=== PATIENT | female | born 1935 | race Caucasian/White ===

== ENCOUNTER 2018-06-02 16:10 | Inpatient (IN) ==
[2018-06-02 17:00] LABS: Hematocrit 36.6 VOL% (35.7-47.0); Hemoglobin 12.2 GM/DL (12.0-16.0); Mean Corpuscular HGB Conc 33.3 GM/DL (32-36); Mean Corpuscular Hemoglobin 30 PG (27-34); Mean Corpuscular Volume 90.8 FL (87-102); Platelet Count 217 T/CUMM (130-400); Red Blood Count 4.03 MC/CUMM (3.8-5.5); Red Cell Distribution Width 15.5 % (9.3-17.3); White Blood Count 6.7 T/CUMM (4-12)
[2018-06-02 17:01] LABS: Basophils # 0.1 10*3/uL (0.0-0.2); Eosinophils # 0.1 10*3/uL (0.0-0.87); Eosinophils % 0.9 % (0.00-10.9); Immature Granulocytes % 0.3 %; Immature Granulocytes Absolute 0.02 #; Lymphocytes # 1.8 10*3/uL (1.4-4.0); Mean Platelet Volume 12.3 FL (9.6-12.0); Monocytes # 0.6 10*3/uL (0.11-0.8); Monocytes % 8.5 % (1.7-12.7); Neutrophils # 4.3 10*3/uL (1.4-7.4); Neutrophils % 63.3 % (38.7-73.9)
[2018-06-02 17:09] LABS: INR 1.4; PT Patient Result 14.6 SECS; Partial Thromboplastin Time 29.7 SECS (0-40)
[2018-06-02 17:12] LABS: Apearance,Urine Slightly Hazy (Clear); Bacteria,Urine Many /HPF (Few); Blood, Urine Negative (Negative); Glucose,Urine (UA) Negative (Negative); Ketones,Urine 5 mg/dL (Negative); Mucus,Urine Few /LPF (Occasional); Nitrite,Urine Positive (Negative); Protein,Urine 30 MG/DL; Squamous Epithelial Cell,Urine Occasional /HPF (0-10); Urine Color Amber (Yellow); Urine Specific Gravity 1.014 (1.001-1.035); WBC,Urine 2 /HPF (0-6)
[2018-06-02 17:13] LABS: Bilirubin,Urine Small mg/dL (Negative)
[2018-06-02 17:25] LABS: Albumin 3.3 G/DL (3.4-5.0); Bilirubin,Total 6.3 MG/DL (0.2-1.0); Calcium 8.7 MG/DL (8.5-10.1); Osmolality,Calculated 285.3 MOS/KG (273-304); Potassium 3.7 MMOL/L (3.5-5.1); Total Protein 7.6 G/DL (6.4-8.3)
[2018-06-02] MEDS: SODIUM CHLORIDE 0.9% 1,000 ML IV SCH (18:55)
[2018-06-02] MEDS: DOCUSATE SODIUM 100 MG CAPSULE PO SCH (20:31)
[2018-06-03] MEDS: SODIUM CHLORIDE 0.9% 1,000 ML IV SCH (08:58)
[2018-06-03] MEDS: PANTOPRAZOLE 40 MG TABLET PO SCH ×2 (08:59→09:44)
[2018-06-03] MEDS: DOCUSATE SODIUM 100 MG CAPSULE PO SCH ×3 (08:59→20:04)
[2018-06-03] MEDS ORDERED: ALPRAZolam 0.25 MG TABLET PO PRN (09:18)
[2018-06-03] MEDS: MULTIVITAMIN (CENTRUM) TABLET PO SCH (09:44)
[2018-06-03] MEDS: CITALOPRAM 20 MG TABLET PO SCH (09:44)
[2018-06-03] MEDS: CLOTRIMAZOLE/BETAMETHASONE CREAM 15 GM TUBE TOP SCH ×2 (11:33→20:05)
[2018-06-03] MEDS ORDERED: INDOMETHACIN SUPP 50 MG SUPP RECTAL ONE (12:24)
[2018-06-03] MEDS ORDERED: LACTATED RINGERS 1,000 ML IV SCH (12:30)
[2018-06-03] MEDS ORDERED: ONDANSETRON 4 MG/2 ML VIAL ONE (15:02)
[2018-06-03] MEDS ORDERED: SUCCINYLCHOLINE 200 MG/10 ML VIAL ONE (15:02)
[2018-06-03] MEDS ORDERED: LIDOCAINE 100 MG/5 ML SYRINGE ONE (15:02)
[2018-06-03] MEDS ORDERED: ETOMIDATE 20 MG/10 ML VIAL IV ONE (15:02)
[2018-06-03] MEDS ORDERED: PROPOFOL 200 MG/20 ML VIAL IV ONE (15:02)
[2018-06-03] MEDS ORDERED: PHENYLEPHRINE 1 MG/10 ML SYRINGE IV ONE (15:02)
[2018-06-03] MEDS ORDERED: GLUCAGON 1 MG VIAL ONE (15:54)
[2018-06-03] MEDS: MELATONIN 3 MG TABLET PO SCH (20:04)
[2018-06-04 05:19] LABS: Basophils # 0.1 10*3/uL (0.0-0.2); Basophils % 0.8 % (0.0-0.8); Eosinophils # 0.1 10*3/uL (0.0-0.87); Eosinophils % 1.6 % (0.00-10.9); Hematocrit 31.4 VOL% (35.7-47.0); Hemoglobin 10.5 GM/DL (12.0-16.0); Immature Granulocytes % 0.3 %; Immature Granulocytes Absolute 0.02 #; Lymphocytes # 1.6 10*3/uL (1.4-4.0); Mean Corpuscular HGB Conc 33.4 GM/DL (32-36); Mean Corpuscular Hemoglobin 30 PG (27-34); Mean Corpuscular Volume 89.2 FL (87-102); Mean Platelet Volume 13.3 FL (9.6-12.0); Monocytes # 0.5 10*3/uL (0.11-0.8); Monocytes % 7.5 % (1.7-12.7); Neutrophils # 4.1 10*3/uL (1.4-7.4); Neutrophils % 64.8 % (38.7-73.9); Platelet Count 175 T/CUMM (130-400); Red Blood Count 3.52 MC/CUMM (3.8-5.5); Red Cell Distribution Width 15.9 % (9.3-17.3); White Blood Count 6.3 T/CUMM (4-12)
[2018-06-04] MEDS: LEVOTHYROXINE 50 MCG TABLET PO SCH (05:39)
[2018-06-04 06:05] LABS: Albumin 2.3 G/DL (3.4-5.0); Bilirubin,Total 6.5 MG/DL (0.2-1.0); Calcium 8.4 MG/DL (8.5-10.1); Ferritin 239.7 ng/ml (8-252); Free T4 (Free Thyroxine) 1.1 NG/DL (0.76-1.46); Osmolality,Calculated 283.8 MOS/KG (273-304); Potassium 3.6 MMOL/L (3.5-5.1); Risk Ratio 14.93; Thyroid Stimulating Hormone 2.25 uIU/ml (0.358-3.74); Total Protein 5.8 G/DL (6.4-8.3); VLDL CHOLESTEROL 32.8 MG/DL
[2018-06-04 06:35] LABS: Carcinoembryonic Antigen 3.6 NG/ML (0.0-5.0)
[2018-06-04] MEDS: SODIUM CHLORIDE 0.9% 1,000 ML IV SCH ×2 (07:01→20:21)
[2018-06-04 08:03] LABS: Cancer Antigen 19-9 963.3 U/ML (0-37)
[2018-06-04] MEDS ORDERED: cefTRIAXone 1,000 MG VIAL IV SCH (09:00)
[2018-06-04] MEDS ORDERED: LORazepam 2 MG/1 ML VIAL IV PRN (09:45)
[2018-06-04] MEDS: ASPIRIN EC 81 MG TABLET PO SCH (11:33)
[2018-06-04] MEDS: MULTIVITAMIN (CENTRUM) TABLET PO SCH (11:33)
[2018-06-04] MEDS: CITALOPRAM 20 MG TABLET PO SCH (11:33)
[2018-06-04] MEDS: PANTOPRAZOLE 40 MG TABLET PO SCH (11:34)
[2018-06-04] MEDS: DOCUSATE SODIUM 100 MG CAPSULE PO SCH ×2 (11:34→20:43)
[2018-06-04] MEDS: cefTRIAXone 1,000 MG in SYRINGE 1 EACH IV SCH (13:34)
[2018-06-04] MEDS: CLOTRIMAZOLE/BETAMETHASONE CREAM 15 GM TUBE TOP SCH ×2 (13:40→20:43)
[2018-06-04] MEDS: MELATONIN 3 MG TABLET PO SCH (20:43)
[2018-06-05 05:28] LABS: Basophils # 0.1 10*3/uL (0.0-0.2); Basophils % 1.4 % (0.0-0.8); Eosinophils # 0.1 10*3/uL (0.0-0.87); Eosinophils % 2.3 % (0.00-10.9); Hematocrit 31.7 VOL% (35.7-47.0); Hemoglobin 10.4 GM/DL (12.0-16.0); Immature Granulocytes % 0.4 %; Immature Granulocytes Absolute 0.02 #; Lymphocytes # 1.4 10*3/uL (1.4-4.0); Lymphocytes % 24.4 % (21.3-54.2); Mean Corpuscular HGB Conc 32.8 GM/DL (32-36); Mean Corpuscular Hemoglobin 29 PG (27-34); Mean Corpuscular Volume 89.5 FL (87-102); Mean Platelet Volume 12.7 FL (9.6-12.0); Monocytes # 0.6 10*3/uL (0.11-0.8); Monocytes % 10.2 % (1.7-12.7); Neutrophils # 3.4 10*3/uL (1.4-7.4); Neutrophils % 61.3 % (38.7-73.9); Platelet Count 169 T/CUMM (130-400); Red Blood Count 3.54 MC/CUMM (3.8-5.5); Red Cell Distribution Width 15.7 % (9.3-17.3); White Blood Count 5.6 T/CUMM (4-12)
[2018-06-05] MEDS: LEVOTHYROXINE 50 MCG TABLET PO SCH (05:53)
[2018-06-05 06:51] LABS: Albumin 2.2 G/DL (3.4-5.0); Bilirubin,Total 5.7 MG/DL (0.2-1.0); Calcium 8.2 MG/DL (8.5-10.1); Potassium 2.9 MMOL/L (3.5-5.1); Total Protein 5.7 G/DL (6.4-8.3)
[2018-06-05] MEDS: PANTOPRAZOLE 40 MG TABLET PO SCH (09:32)
[2018-06-05] MEDS: CITALOPRAM 20 MG TABLET PO SCH (09:32)
[2018-06-05] MEDS: MULTIVITAMIN (CENTRUM) TABLET PO SCH (09:32)
[2018-06-05] MEDS: ASPIRIN EC 81 MG TABLET PO SCH (09:32)
[2018-06-05] MEDS: DOCUSATE SODIUM 100 MG CAPSULE PO SCH ×2 (09:33→20:41)
[2018-06-05] MEDS: cefTRIAXone 1,000 MG in SYRINGE 1 EACH IV SCH (09:39)
[2018-06-05] MEDS: CLOTRIMAZOLE/BETAMETHASONE CREAM 15 GM TUBE TOP SCH ×2 (09:41→20:41)
[2018-06-05] MEDS ORDERED: POTASSIUM CHLORIDE RIDER 20 MEQ in PREMIX 1 EACH IV PRN (10:49)
[2018-06-05] MEDS: POTASSIUM CHLORIDE INJ 10 MEQ in SODIUM CHLORIDE 0.9% 1,000 ML IV SCH (13:42)
[2018-06-05] MEDS: POTASSIUM CHLORIDE RIDER 10 MEQ in PREMIX 1 EACH IV PRN ×2 (13:45→15:11)
[2018-06-05] MEDS: SODIUM CHLORIDE 0.9% 1,000 ML IV SCH (13:53)
[2018-06-05] MEDS: MELATONIN 3 MG TABLET PO SCH (20:41)
[2018-06-06 05:51] LABS: Basophils # 0.1 10*3/uL (0.0-0.2); Basophils % 0.9 % (0.0-0.8); Eosinophils # 0.1 10*3/uL (0.0-0.87); Eosinophils % 2.6 % (0.00-10.9); Hematocrit 30.1 VOL% (35.7-47.0); Hemoglobin 10.1 GM/DL (12.0-16.0); Immature Granulocytes % 0.4 %; Immature Granulocytes Absolute 0.02 #; Lymphocytes # 1.3 10*3/uL (1.4-4.0); Lymphocytes % 24.3 % (21.3-54.2); Mean Corpuscular HGB Conc 33.6 GM/DL (32-36); Mean Corpuscular Hemoglobin 30 PG (27-34); Mean Corpuscular Volume 88.5 FL (87-102); Monocytes # 0.6 10*3/uL (0.11-0.8); Monocytes % 10.3 % (1.7-12.7); Neutrophils # 3.3 10*3/uL (1.4-7.4); Neutrophils % 61.5 % (38.7-73.9); Platelet Count 173 T/CUMM (130-400); Red Cell Distribution Width 15.9 % (9.3-17.3); White Blood Count 5.4 T/CUMM (4-12)
[2018-06-06] MEDS: LEVOTHYROXINE 50 MCG TABLET PO SCH (06:00)
[2018-06-06 06:20] LABS: Calcium 7.9 MG/DL (8.5-10.1); Potassium 2.9 MMOL/L (3.5-5.1)
[2018-06-06 06:24] LABS: Albumin 2.4 G/DL (3.4-5.0); Bilirubin,Total 6.3 MG/DL (0.2-1.0); Calcium 7.9 MG/DL (8.5-10.1); Potassium 2.9 MMOL/L (3.5-5.1); Total Protein 5.6 G/DL (6.4-8.3)
[2018-06-06] MEDS: PIPERACILLIN/TAZOBACTAM 3,375 MG in SODIUM CHLORIDE 0.9% 100 ML IV SCH ×2 (09:57→16:41)
[2018-06-06] MEDS: cefTRIAXone 1,000 MG in SYRINGE 1 EACH IV SCH (09:57)
[2018-06-06] MEDS: POTASSIUM CHLORIDE RIDER 10 MEQ in PREMIX 1 EACH IV PRN ×5 (10:13→21:03)
[2018-06-06] MEDS: CITALOPRAM 20 MG TABLET PO SCH (10:23)
[2018-06-06] MEDS: MULTIVITAMIN (CENTRUM) TABLET PO SCH (10:23)
[2018-06-06] MEDS: PANTOPRAZOLE 40 MG TABLET PO SCH (10:23)
[2018-06-06] MEDS: DOCUSATE SODIUM 100 MG CAPSULE PO SCH ×2 (10:23→20:51)
[2018-06-06] MEDS: ASPIRIN EC 81 MG TABLET PO SCH (10:23)
[2018-06-06] MEDS: CLOTRIMAZOLE/BETAMETHASONE CREAM 15 GM TUBE TOP SCH ×2 (11:44→20:52)
[2018-06-06] MEDS ORDERED: fentaNYL 100 MCG/2 ML VIAL ONE (11:48)
[2018-06-06] MEDS ORDERED: PROPOFOL 200 MG/20 ML VIAL IV ONE (11:48)
[2018-06-06] MEDS ORDERED: MIDAZOLAM 2 MG/2 ML VIAL ONE (11:48)
[2018-06-06] MEDS: POTASSIUM CHLORIDE INJ 10 MEQ in SODIUM CHLORIDE 0.9% 1,000 ML IV SCH ×2 (13:36→22:45)
[2018-06-06] MEDS: MELATONIN 3 MG TABLET PO SCH (20:51)
[2018-06-07] MEDS: PIPERACILLIN/TAZOBACTAM 3,375 MG in SODIUM CHLORIDE 0.9% 100 ML IV SCH ×3 (00:58→16:57)
[2018-06-07] MEDS: LEVOTHYROXINE 50 MCG TABLET PO SCH (06:39)
[2018-06-07] MEDS ORDERED: POTASSIUM CHLORIDE RIDER 20 MEQ in PREMIX 1 EACH IV PRN (07:32)
[2018-06-07] MEDS ORDERED: POTASSIUM CHLORIDE INJ 20 MEQ in SODIUM CHLORIDE 0.9% 1,000 ML IV SCH (08:00)
[2018-06-07] MEDS: ACETAMINOPHEN 325 MG TABLET PO PRN (11:10)
[2018-06-07] MEDS: SODIUM CHLOR 0.9% KCL 20 MEQ 20 MEQ/1,000 ML BAG IV SCH (11:10)
[2018-06-07] MEDS: CITALOPRAM 20 MG TABLET PO SCH (11:12)
[2018-06-07] MEDS: DOCUSATE SODIUM 100 MG CAPSULE PO SCH ×2 (11:12→21:09)
[2018-06-07] MEDS: cefTRIAXone 1,000 MG in SYRINGE 1 EACH IV SCH (11:12)
[2018-06-07] MEDS: ASPIRIN EC 81 MG TABLET PO SCH (11:13)
[2018-06-07] MEDS: PANTOPRAZOLE 40 MG TABLET PO SCH (11:13)
[2018-06-07] MEDS: MULTIVITAMIN (CENTRUM) TABLET PO SCH (11:13)
[2018-06-07] MEDS: CLOTRIMAZOLE/BETAMETHASONE CREAM 15 GM TUBE TOP SCH ×2 (11:13→21:12)
[2018-06-07] MEDS: MELATONIN 3 MG TABLET PO SCH (21:09)
[2018-06-08] MEDS: PIPERACILLIN/TAZOBACTAM 3,375 MG in SODIUM CHLORIDE 0.9% 100 ML IV SCH ×3 (03:00→17:50)
[2018-06-08 04:54] LABS: Basophils # 0.1 10*3/uL (0.0-0.2); Eosinophils # 0.3 10*3/uL (0.0-0.87); Eosinophils % 5.1 % (0.00-10.9); Hematocrit 30.3 VOL% (35.7-47.0); Immature Granulocytes % 0.3 %; Immature Granulocytes Absolute 0.02 #; Lymphocytes # 1.4 10*3/uL (1.4-4.0); Lymphocytes % 23.6 % (21.3-54.2); Mean Corpuscular Hemoglobin 29 PG (27-34); Mean Corpuscular Volume 88.9 FL (87-102); Mean Platelet Volume 13.7 FL (9.6-12.0); Monocytes # 0.5 10*3/uL (0.11-0.8); Monocytes % 8.2 % (1.7-12.7); Neutrophils # 3.6 10*3/uL (1.4-7.4); Neutrophils % 61.8 % (38.7-73.9); Platelet Count 157 T/CUMM (130-400); Red Blood Count 3.41 MC/CUMM (3.8-5.5); Red Cell Distribution Width 16.6 % (9.3-17.3); White Blood Count 5.9 T/CUMM (4-12)
[2018-06-08 05:17] LABS: Hypochromasia 1+; Platelet Estimate Adequate
[2018-06-08 05:20] LABS: Calcium 8.1 MG/DL (8.5-10.1); Osmolality,Calculated 281.1 MOS/KG (273-304); Potassium 3.3 MMOL/L (3.5-5.1)
[2018-06-08] MEDS: LEVOTHYROXINE 50 MCG TABLET PO SCH (07:39)
[2018-06-08] MEDS ORDERED: POTASSIUM CHLORIDE RIDER 20 MEQ in PREMIX 1 EACH IV PRN (07:46)
[2018-06-08] MEDS: cefTRIAXone 1,000 MG in SYRINGE 1 EACH IV SCH (09:48)
[2018-06-08] MEDS: MULTIVITAMIN (CENTRUM) TABLET PO SCH (09:55)
[2018-06-08] MEDS: DOCUSATE SODIUM 100 MG CAPSULE PO SCH ×2 (09:55→21:22)
[2018-06-08] MEDS: CITALOPRAM 20 MG TABLET PO SCH (09:55)
[2018-06-08] MEDS: PANTOPRAZOLE 40 MG TABLET PO SCH (09:55)
[2018-06-08] MEDS: ASPIRIN EC 81 MG TABLET PO SCH (09:55)
[2018-06-08] MEDS: CLOTRIMAZOLE/BETAMETHASONE CREAM 15 GM TUBE TOP SCH ×2 (12:22→21:22)
[2018-06-08] MEDS ORDERED: PROPOFOL 200 MG/20 ML VIAL IV ONE (15:04)
[2018-06-08] MEDS ORDERED: KETAMINE 500 MG/10 ML VIAL ONE (15:05)
[2018-06-08] MEDS ORDERED: fentaNYL 100 MCG/2 ML VIAL ONE (15:05)
[2018-06-08] MEDS ORDERED: MIDAZOLAM 2 MG/2 ML VIAL ONE (15:05)
[2018-06-08] MEDS: POTASSIUM CHLORIDE RIDER 10 MEQ in PREMIX 1 EACH IV PRN ×2 (16:06→21:27)
[2018-06-08] MEDS: ACETAMINOPHEN 325 MG TABLET PO PRN ×2 (18:31→21:21)
[2018-06-08] MEDS: MELATONIN 3 MG TABLET PO SCH (21:22)
[2018-06-08] MEDS: ONDANSETRON 4 MG/2 ML VIAL IV PRN (21:22)
[2018-06-08] MEDS: SODIUM CHLOR 0.9% KCL 20 MEQ 20 MEQ/1,000 ML BAG IV SCH (22:29)
[2018-06-09] MEDS: PIPERACILLIN/TAZOBACTAM 3,375 MG in SODIUM CHLORIDE 0.9% 100 ML IV SCH ×2 (00:32→09:38)
[2018-06-09] MEDS: POTASSIUM CHLORIDE RIDER 10 MEQ in PREMIX 1 EACH IV PRN ×2 (01:00→06:11)
[2018-06-09 06:02] LABS: Basophils # 0.1 10*3/uL (0.0-0.2); Eosinophils # 0.3 10*3/uL (0.0-0.87); Eosinophils % 4.5 % (0.00-10.9); Hematocrit 28.7 VOL% (35.7-47.0); Hemoglobin 9.6 GM/DL (12.0-16.0); Immature Granulocytes % 0.3 %; Immature Granulocytes Absolute 0.02 #; Lymphocytes # 1.5 10*3/uL (1.4-4.0); Lymphocytes % 20.9 % (21.3-54.2); Mean Corpuscular HGB Conc 33.4 GM/DL (32-36); Mean Corpuscular Hemoglobin 29 PG (27-34); Mean Platelet Volume 13.3 FL (9.6-12.0); Monocytes # 0.6 10*3/uL (0.11-0.8); Monocytes % 8.3 % (1.7-12.7); Neutrophils # 4.6 10*3/uL (1.4-7.4); Platelet Count 160 T/CUMM (130-400); Red Blood Count 3.26 MC/CUMM (3.8-5.5); Red Cell Distribution Width 16.2 % (9.3-17.3); White Blood Count 7.1 T/CUMM (4-12)
[2018-06-09] MEDS: LEVOTHYROXINE 50 MCG TABLET PO SCH (06:12)
[2018-06-09 06:23] LABS: Calcium 8.4 MG/DL (8.5-10.1); Osmolality,Calculated 279.3 MOS/KG (273-304); Potassium 3.9 MMOL/L (3.5-5.1)
[2018-06-09] MEDS: CITALOPRAM 20 MG TABLET PO SCH (09:36)
[2018-06-09] MEDS: DOCUSATE SODIUM 100 MG CAPSULE PO SCH (09:37)
[2018-06-09] MEDS: cefTRIAXone 1,000 MG in SYRINGE 1 EACH IV SCH (09:37)
[2018-06-09] MEDS: MULTIVITAMIN (CENTRUM) TABLET PO SCH (09:37)
[2018-06-09] MEDS: ASPIRIN EC 81 MG TABLET PO SCH (09:37)
[2018-06-09] MEDS: PANTOPRAZOLE 40 MG TABLET PO SCH (09:37)
[2018-06-09] MEDS: CLOTRIMAZOLE/BETAMETHASONE CREAM 15 GM TUBE TOP SCH (09:38)
[2018-06-09] MEDS: SODIUM CHLOR 0.9% KCL 20 MEQ 20 MEQ/1,000 ML BAG IV SCH ×2 (09:56→14:58)
[2018-06-09 12:23] VITALS: BP 123/68
[2018-06-09] MEDS: ONDANSETRON 4 MG/2 ML VIAL IV PRN (13:04)
[2018-06-09] MEDS ORDERED: NITROFURANTOIN MACRO/MONO 100 MG CAPSULE PO SCH (21:00)
== END 2018-06-09 15:01 | DRG 445 ==
LOC: EDBD → EDUNIT# → N.ED 16:10 → N.EDINP 16:49 → N.2E 18:29
PROVIDERS: ADMIT Family Medicine; ATTEND Family Medicine